=== PATIENT | female | born 1960 | race Caucasian/White ===

== ENCOUNTER 2019-08-22 08:27 | Inpatient (IN) | payer MEDICARE, OTHER ==
[2019-08-22] MEDS ORDERED: NITROGLYCERIN 0.4MG SL TABLET #25 BTL SL PRN ×2 (08:51→18:40)
[2019-08-22] MEDS ORDERED: ASPIRIN 81 MG CHEWABLE TABLET PO ONE (08:51)
[2019-08-22 09:03] LABS: ABSOLUTE NEUTROPHIL COUNT 3.32; BASO % 0.6 % (0-6); EOS % 2.7 % (0-6); GRAN % 52.9 % (47-80); HEMOGLOBIN 14.2 gm/dl (11.6-16.0); LYMPH % 30.8 % (16-45); MEAN CELL VOLUME 93.6 fl (81-97); MEAN CORPUSCULAR HEMOGLOBIN 30.2 pg (27-33); MEAN CORPUSCULAR HGB CONC 32.3 g/dl (32-36); MEAN PLATELET VOLUME 8.7 fl (7.4-10.4); PLATELET COUNT 359 K/uL (130-400); RED CELL DISTRIBUTION WIDTH 13.1 % (11.5-14.5); WHITE BLOOD COUNT W/O DIFF 6.3 K/uL (4.2-12.2)
[2019-08-22 09:13] LABS: BLOOD UREA NITROGEN 25 mg/dL (6-20); CREATININE 1.1 mg/dL (0.5-0.9); EST GLOMERULAR FILTRATION RATE 54 mL/min
[2019-08-22 09:14] LABS: TOTAL PROTEIN 7.5 g/dL (6.6-8.7)
[2019-08-22 09:16] LABS: GLUCOSE,RANDOM 97 mg/dL (74-109)
[2019-08-22 09:18] LABS: ALT/SGPT 24 U/L (<33)
[2019-08-22 09:19] LABS: ALB/GLOB RATIO 1.6 (1.1-1.8); ALBUMIN 4.6 g/dL (4.0-5.0); ALKALINE PHOSPHATASE 104 U/L (35-104); AST/SGOT 20 U/L (10.0-35.0); CREATINE PHOSPHOKINASE 192 U/L (26-192)
[2019-08-22 09:21] LABS: CKMB 4.7 ng/mL (<3.77)
[2019-08-22 09:22] LABS: NTpro B-NATRIURETIC PEPTIDE 26.01 pg/mL (<125)
--- NOTE | 2019-08-22 09:56 | Emergency Department Record ---
History of Present Illness - General Chief Complaint: Chest Pain Stated Complaint: CHEST DISCOMFORT/FLUTTERS Time Seen by Provider: 08/22/19 08:43 Source: Patient Mode of Arrival: Ambulatory Limitations: No limitations - History of Present Illness Initial Comments: pt has had intermittent cp for 2 wks that has been constant for 2 days. it is 7/10. she has no nausea, no sob. the pain is substernal and pressure like. 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 she has a fam hx in her mother of mi Complaint: Chest pain Onset/Timin -: Week(s) Pain Location: Substernal Pain Radiation: None Severity: Moderate Severity scale (1-10): 7 Quality: Heaviness, Other Consistency: Constant Improves With: Nothing Worsens With: Nothing Other Symptoms: Palpitations Treatments Prior to Arrival: None - Related Data Allergies Allergy/AdvReac Type Severity Reaction Status Date / Time codeine Allergy ITCHING Verified 08/22/19 08:36 venom-honey bee Allergy SWELLING Verified 08/22/19 08:36 [bee venom (honey bee)] (GENERAL) Travel Screening - Travel/Exposure Within Last 30 Days Have you traveled within the last 30 days?: No Review of Systems Reviewed: No additional complaints except as noted below Constitutional: Reports: As per HPI. Denies: Chills, Fever, Malaise, Night sweats, Weakness, Weight change Eyes: Reports: As per HPI. Denies: Eye discharge, Eye pain, Photophobia, Vision change ENT: Reports: As per HPI. Denies: Congestion, Dental pain, Ear pain, Epistaxis, Hearing loss, Throat pain Respiratory: Reports: As per HPI. Denies: Cough, Dyspnea, Hemoptysis, Stridor, Wheezes Cardiovascular: Reports: As per HPI, Chest pain, Palpitations. Denies: Arrhythmia, Dyspnea on exertion, Edema, Murmurs, Orthopnea, Paroxysmal nocturnal dyspnea, Rheumatic Fever, Syncope Endocrine: Reports: As per HPI. Denies: Fatigue, Heat or cold intolerance, Polydipsia, Polyuria Gastrointestinal: Reports: As per HPI. Denies: Abdominal pain, Constipation, Diarrhea, Hematemesis, Hematochezia, Melena, Nausea, Vomiting Genitourinary: Reports: As per HPI. Denies: Abnormal menses, Discharge, Dyspareunia, Dysuria, Frequency, Hematuria, Incontinence, Retention, Urgency Musculoskeletal: Reports: As per HPI. Denies: Arthralgia, Back pain, Gout, Joint swelling, Myalgia, Neck pain Skin: Reports: As per HPI. Denies: Bruising, Change in color, Change in hair/nails, Lesions, Pruritus, Rash Neurological: Reports: As per HPI. Denies: Abnormal gait, Confusion, Headache, Numbness, Paresthesias, Seizure, Tingling, Tremors, Vertigo, Weakness Psychiatric: Reports: As per HPI. Denies: Anxiety, Auditory hallucinations, Depression, Homicidal thoughts, Suicidal thoughts, Visual hallucinations Hematological/Lymphatic: Reports: As per HPI. Denies: Anemia, Blood Clots, Easy bleeding, Easy bruising, Swollen glands Past Medical History - SOCIAL HISTORY Smoking Status: Former smoker Alcohol Use: Occasional Drug Use: None - RESPIRATORY Hx Respiratory Disorders: No - CARDIOVASCULAR Hx Cardio Disorders: Yes Hx Cardiac Cath: Yes Hx Heart Attack: Yes (2010) Hx Hypertension: Yes Comment:: cardiomyopathy - NEURO Hx Neuro Disorders: No - GI Hx GI Disorders: Yes Comment:: colitis - Hx Genitourinary Disorders: No - ENDOCRINE Hx Endocrine Disorders: Yes Hx Thyroid Disease: Yes - MUSCULOSKELETAL Hx Musculoskeletal Disorders: Yes Comment:: neck injury - PSYCH Hx Psych Problems: Yes Hx Anxiety: Yes Hx Depression: Yes - HEMATOLOGY/ONCOLOGY Hx Hematology/Oncology Disorders: No Family Medical History Any Significant Family History?: Yes Hx Cancer: Father Hx Heart Disease: Mother Physical Exam - General General Appearance: Alert, Oriented x3, Cooperative, Mild distress - Head Head exam: Normal inspection - Eye Eye exam: Normal appearance, PERRL, EOMI Pupils: Normal accommodation - ENT ENT exam: Normal exam, Mucous membranes moist, Normal external ear exam, Normal orophraynx Ear exam: Normal external inspection. negative: External canal tenderness Nasal Exam: Normal inspection. negative: Discharge, Sinus tenderness Mouth exam: Normal external inspection, Tongue normal Teeth exam: Normal inspection. negative: Dental caries Throat exam: Normal inspection. negative: Tonsillar erythema, Tonsillar exudate - Neck Neck exam: Normal inspection, Full ROM. negative: Tenderness - Respiratory Respiratory exam: Normal lung sounds bilaterally. negative: Respiratory distress - Cardiovascular Cardiovascular Exam: Regular rate, Normal rhythm, Normal heart sounds - GI/Abdominal GI/Abdominal exam: Soft, Normal bowel sounds. negative: Tenderness - Rectal Rectal exam: Deferred - exam: Deferred - Extremities Extremities exam: Normal inspection, Full ROM, Normal capillary refill. negative: Tenderness - Back Back exam: Reports: Normal inspection, Full ROM. 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 Reevaluation #2: 08/22/19 11:45 d/w dr luna Medical Decision Making - Lab Data Result diagrams: 08/22/19 08:40 08/22/19 08:40 Lab Results 08/22/19 08/22/19 08/22/19 Range/Units 08:40 08:40 08:40 WBC 6.3 (4.2-12.2) K/uL RBC 4.70 (3.80-5.40) M/uL Hgb 14.2 (11.6-16.0) gm/dl Hct 44.0 (35.0-47.0) % MCV 93.6 (81-97) fl MCH 30.2 (27-33) pg MCHC 32.3 (32-36) g/dl RDW 13.1 (11.5-14.5) % Plt Count 359 (130-400) K/uL MPV 8.7 (7.4-10.4) fl Gran % 52.9 (47-80) % Lymphocytes % 30.8 (16-45) % Monocytes % 13.0 H (0-9) % Eosinophils % 2.7 (0-6) % Basophils % 0.6 (0-6) % Absolute Neutrophils 3.32 D-Dimer 0.39 (0-0.59) mg/L FEU Sodium 139 (136-145) mmol/L Potassium 3.6 (3.4-4.5) mmol/L Chloride 100 (98-107) mmol/L Carbon Dioxide 25.0 (22-29) mmol/L Anion Gap 14.0 (7-16) BUN 25 H (6-20) mg/dL Creatinine 1.1 H (0.5-0.9) mg/dL Estimated GFR 54 mL/min Random Glucose 97 (74-109) mg/dL Calcium 9.4 (8.6-10.0) mg/dL Total Bilirubin 0.50 (0.2-1.0) mg/dL AST 20 (10.0-35.0) U/L ALT 24 (<33) U/L Alkaline Phosphatase 104 (35-104) U/L Creatine Kinase 192 (26-192) U/L CK-MB (CK-2) 4.7 H (<3.77) ng/mL Troponin T < 0.010 (0-0.010) ng/mL NT-Pro-B Natriuret Pep 26.01 (<125) pg/mL Total Protein 7.5 (6.6-8.7) g/dL Albumin 4.6 (4.0-5.0) g/dL Globulin 2.9 (1.4-4.8) gm/dL Albumin/Globulin Ratio 1.6 (1.1-1.8) Disposition Disposition: Admit Clinical Impression: Chest pain Qualifiers: Chest pain type: unspecified Qualified Code(s): R07.9 - Chest pain, unspecified Disposition: Still a Patient at [facility] Decision to Admit: Admit from ER Decision to Admit Date: 08/22/19 Decision to Admit Time: 10:57 Forms: Patient Portal Access Quality - Quality Measures Quality Measures: N/A - Blood Pressure Screening Does Patient Have Any of the Following: Active Dx of HTN Blood Pressure Classification: Hypertensive Reading Systolic Measurement: 133 Diastolic Measurement: 90 Screening for High Blood Pressure: Patient Exclusion, Hx of HTN [G9744]
--- NOTE | 2019-08-22 10:15 | RADIOLOGY REPORT ---
EXAMINATION: Two View Chest Radiographs EXAM DATE: 08/22/2019 10:05 AM TECHNIQUE: Frontal and lateral views INDICATION: cp COMPARISON: None ENCOUNTER: Not applicable FINDINGS: Cardiomediastinal structures unremarkable. Bibasilar infiltrates or atelectasis. No pulmonary consoli dation. No pneumothorax or pleural effusion. Thoracic epidural wires. Cervical fusion. IMPRESSION: Bibasilar infiltrates or atelectasis Dictated by: Juancarlos Kunz MD on 08/22/2019 10:11 AM. .
--- NOTE | 2019-08-22 12:15 | History & Physical ---
History of Present Illness - Date of Service Date of Service for History & Physical: 08/22/19 - History of Present Illness History of Present Illness: Patient presents to ED today for complaint of intermittent substernal chest pain and pressure for the past 2 weeks which has been becoming more persistant for the past 2 days. Pain upon arrival 01/30. She does have hx of [place] 2010 with heart cath at that time which showed normal coronary arteries and was diagnosed with Takutsubo cardiomyopathy. She does have a family hx of mother who also had an [place]. Did socially smoke for 8 years, quit in 2014. Otherwise does not currently smoke cigarettes, marijuana, or vape. No travel out of the country in the last 30 days or contact with anyone traveling from [place]. Does report recent illness with flu-like symptoms a couple weeks ago and has had a lingering cough, fatigue, weakness. Denies fever, chills, diarrhea, nausea. She was given nitro in the ED and did have improvement in chest pain but did drop SBP to 90. She has followed with Dr Martin at [facility], last seen 2 years ago but wishes to change cardiology services to [facility]. Dr Cooley was consulted in the ED. Admitted for cardiology consult, echocardiogram, and stress test if warranted Significant findings in ED - EKG no acute process, NSR - CXR bilateral infiltrates - CBC normal - BUN/Cr 25, 1.1 - Troponin <0.010 - CkMB 4.7 - D-dimer normal - Triglycerides 236 - LDL 101 - HDL 39 PCP: Dr. Soriano Cardiology- [facility] Dr Tee PAST MEDICAL/SURGICAL HISTORY Past Surgical History neck-repair of fracture with plate; R arm repair of fracture with plate;spinal cord stimulator ( 2019) PMH - Respiratory Hx Respiratory Disorders No PMH - Cardiovascular Hx Cardiovascular Disorders Yes Hx Cardiac Catheterization Yes Hx Heart Attack Yes: 2010 Hx Hypertension Yes Comment: cardiomyopathy PMH - Neuro Hx Neurological Disorders No PMH - GI Hx Gastrointestinal Disorders Yes Comment: colitis PMH - Hx Genitourinary Disorders No Patient No PMH - Endocrine Hx Endocrine Disorders Yes Hx Thyroid Disease Yes PMH - Musculoskeletal Hx Musculoskeletal Disorders Yes Comment: neck injury PMH - Psych Hx Psychiatric Problems Yes Hx Anxiety Yes Hx Depression Yes PMH - Hematology/Oncology Hx Hematology/Oncology No Disorders Laboratory Results WBC 6.3 K/uL (4.2-12.2) 08/22/19 08:40 RBC 4.70 M/uL (3.80-5.40) 08/22/19 08:40 Hgb 14.2 gm/dl (11.6-16.0) 08/22/19 08:40 Hct 44.0 % (35.0-47.0) 08/22/19 08:40 MCV 93.6 fl (81-97) 08/22/19 08:40 MCH 30.2 pg (27-33) 08/22/19 08:40 MCHC 32.3 g/dl (32-36) 08/22/19 08:40 RDW 13.1 % (11.5-14.5) 08/22/19 08:40 Plt Count 359 K/uL (130-400) 08/22/19 08:40 MPV 8.7 fl (7.4-10.4) 08/22/19 08:40 Gran % 52.9 % (47-80) 08/22/19 08:40 Lymphocytes % 30.8 % (16-45) 08/22/19 08:40 Monocytes % 13.0 % (0-9) H 08/22/19 08:40 Eosinophils % 2.7 % (0-6) 08/22/19 08:40 Basophils % 0.6 % (0-6) 08/22/19 08:40 Absolute Neutrophils 3.32 08/22/19 08:40 D-Dimer 0.39 mg/L FEU (0-0.59) 08/22/19 08:40 Sodium 139 mmol/L (136-145) 08/22/19 08:40 Potassium 3.6 mmol/L (3.4-4.5) 08/22/19 08:40 Chloride 100 mmol/L (98-107) 08/22/19 08:40 Carbon Dioxide 25.0 mmol/L (22-29) 08/22/19 08:40 Anion Gap 14.0 (7-16) 08/22/19 08:40 BUN 25 mg/dL (6-20) H 08/22/19 08:40 Creatinine 1.1 mg/dL (0.5-0.9) H 08/22/19 08:40 Estimated GFR 54 mL/min 08/22/19 08:40 Random Glucose 97 mg/dL (74-109) 08/22/19 08:40 Calcium 9.4 mg/dL (8.6-10.0) 08/22/19 08:40 Total Bilirubin 0.50 mg/dL (0.2-1.0) 08/22/19 08:40 AST 20 U/L (10.0-35.0) 08/22/19 08:40 ALT 24 U/L (<33) 08/22/19 08:40 Alkaline Phosphatase 104 U/L (35-104) 08/22/19 08:40 Creatine Kinase 192 U/L (26-192) 08/22/19 08:40 CK-MB (CK-2) Cancelled 08/23/19 14:30 Troponin T Cancelled 08/23/19 14:30 NT-Pro-B Natriuret Pep 26.01 pg/mL (<125) 08/22/19 08:40 Total Protein 7.5 g/dL (6.6-8.7) 08/22/19 08:40 Albumin 4.6 g/dL (4.0-5.0) 08/22/19 08:40 Globulin 2.9 gm/dL (1.4-4.8) 08/22/19 08:40 Albumin/Globulin Ratio 1.6 (1.1-1.8) 08/22/19 08:40 Triglycerides 236 mg/dL (<150) H 08/22/19 08:40 Cholesterol 159 mg/dL (<200) 08/22/19 08:40 LDL Cholesterol Measurd 101.0 mg/dL (0-100) H 08/22/19 08:40 VLDL Cholesterol 47 mg/dL (10.00-40.00) 08/22/19 08:40 HDL Cholesterol 39 mg/dL (40-60) L 08/22/19 08:40 Vital Signs - Last 24 Hrs Temp Pulse Pulse Pulse Resp BP BP 08/22/19 12:26 66 18 103/67 08/22/19 12:23 97.8 F 71 16 106/70 08/22/19 10:47 97.8 F 72 14 107/77 08/22/19 09:31 68 100/64 08/22/19 09:09 76 18 98/70 08/22/19 09:04 71 18 125/86 08/22/19 08:30 97.4 F L 82 20 133/90 Pulse Ox 08/22/19 12:26 99 08/22/19 12:23 92 L 08/22/19 10:47 98 08/22/19 09:31 95 08/22/19 09:09 96 08/22/19 09:04 98 08/22/19 08:30 98 Travel Screening - Travel/Exposure Within Last 30 Days Have you traveled within the last 30 days?: No Review of Systems Constitutional: Reports: As per HPI. Denies: Chills, Fever, Malaise, Night sweats, Weakness, Weight change Eyes: Reports: As per HPI. Denies: Eye discharge, Eye pain, Photophobia, Vision change ENT: Reports: As per HPI. Denies: Congestion, Dental pain, Ear pain, Epistaxis, Hearing loss, Throat pain Respiratory: Reports: As per HPI. Denies: Cough, Dyspnea, Hemoptysis, Stridor, Wheezes Cardiovascular: Reports: As per HPI, Chest pain, Palpitations. Denies: Arrhythmia, Dyspnea on exertion, Edema, Murmurs, Orthopnea, Paroxysmal nocturnal dyspnea, Rheumatic Fever, Syncope Endocrine: Reports: As per HPI. Denies: Fatigue, Heat or cold intolerance, Polydipsia, Polyuria Gastrointestinal: Reports: As per HPI. Denies: Abdominal pain, Constipation, Diarrhea, Hematemesis, Hematochezia, Melena, Nausea, Vomiting Genitourinary: Reports: As per HPI. Denies: Abnormal menses, Discharge, Dyspareunia, Dysuria, Frequency, Hematuria, Incontinence, Retention, Urgency Musculoskeletal: Reports: As per HPI. Denies: Arthralgia, Back pain, Gout, Joint swelling, Myalgia, Neck pain Skin: Reports: As per HPI. Denies: Bruising, Change in color, Change in hair/nails, Lesions, Pruritus, Rash Neurological: Reports: As per HPI. Denies: Abnormal gait, Confusion, Headache, Numbness, Paresthesias, Seizure, Tingling, Tremors, Vertigo, Weakness Psychiatric: Reports: As per HPI. Denies: Anxiety, Auditory hallucinations, Depression, Homicidal thoughts, Suicidal thoughts, Visual hallucinations Hematological/Lymphatic: Reports: As per HPI. Denies: Anemia, Blood Clots, Easy bleeding, Easy bruising, Swollen glands Past Medical History - SOCIAL HISTORY Smoking Status: Former smoker Alcohol Use: Occasional Drug Use: None - RESPIRATORY Hx Respiratory Disorders: No - CARDIOVASCULAR Hx Cardio Disorders: Yes Hx Cardiac Cath: Yes Hx Heart Attack: Yes (2010) Hx Hypertension: Yes Comment:: cardiomyopathy - NEURO Hx Neuro Disorders: No - GI Hx GI Disorders: Yes Comment:: colitis - Hx Genitourinary Disorders: No - ENDOCRINE Hx Endocrine Disorders: Yes Hx Thyroid Disease: Yes - MUSCULOSKELETAL Hx Musculoskeletal Disorders: Yes Comment:: neck injury - PSYCH Hx Psych Problems: Yes Hx Anxiety: Yes Hx Depression: Yes - HEMATOLOGY/ONCOLOGY Hx Hematology/Oncology Disorders: No Family Medical History Any Significant Family History?: Yes Hx Cancer: Father Hx Heart Disease: Mother H&P Meds/Allergies - Allergies Allergies: Allergies Allergy/AdvReac Type Severity Reaction Status Date / Time codeine Allergy ITCHING Verified 08/22/19 08:36 venom-honey bee Allergy SWELLING Verified 08/22/19 08:36 [bee venom (honey bee)] (GENERAL) - Active Medications Active Medications: Current Medications Nitroglycerin (Nitrostat 0.4mg) 0.4 mg SL Q5MIN PRN PRN Reason: CHEST PAIN Last Admin: 08/22/19 09:04 Dose: 0.4 mg Documented by: Physical Exam - Vital Signs Vital Signs: Vital Signs - Last 24 Hrs Temp Pulse Pulse Resp BP BP Pulse Ox 08/22/19 10:47 97.8 F 72 14 107/77 98 08/22/19 09:31 68 100/64 95 08/22/19 09:09 76 18 98/70 96 08/22/19 09:04 71 18 125/86 98 08/22/19 08:30 97.4 F L 82 20 133/90 98 - General General Appearance: Alert, Oriented x3, Cooperative Limitations: No limitations - Head Head exam: Normal inspection - Eye Eye exam: Normal appearance, PERRL, EOMI Pupils: Normal accommodation - ENT ENT exam: Normal exam, Mucous membranes moist, Normal external ear exam, Normal orophraynx Ear exam: Normal external inspection. negative: External canal tenderness Nasal Exam: Normal inspection. negative: Discharge, Sinus tenderness Mouth exam: Normal external inspection, Tongue normal Teeth exam: Normal inspection. negative: Dental caries Throat exam: Normal inspection. negative: Tonsillar erythema, Tonsillar exudate - Neck Neck exam: Normal inspection, Full ROM, Other (no carotid bruit). negative: Tenderness - Respiratory Respiratory exam: Normal lung sounds bilaterally. negative: Respiratory distress - Cardiovascular Cardiovascular Exam: Regular rate, Normal rhythm, Normal heart sounds Peripheral Pulses: 3+: Radial (R), Radial (L) - GI/Abdominal GI/Abdominal exam: Soft, Normal bowel sounds. negative: Tenderness - Rectal Rectal exam: Deferred - exam: Deferred - Extremities Extremities exam: Normal inspection, Full ROM, Normal capillary refill. negative: Tenderness - Back Back exam: Reports: Normal inspection, Full ROM. Denies: Muscle spasm, Rash noted, Tenderness - Neurological Neurological exam: Alert, CN II-XII intact, Normal gait, Oriented X3 - Psychiatric Psychiatric exam: Normal affect, Normal mood - Skin Skin exam: Dry, Intact, Normal color, Warm Results - Labs Result Diagrams: 08/22/19 08:40 08/22/19 08:40 Labs Last 24 Hours: Laboratory Results - last 24 hr 08/22/19 08/22/19 08/22/19 08:40 08:40 08:40 WBC 6.3 RBC 4.70 Hgb 14.2 Hct 44.0 MCV 93.6 MCH 30.2 MCHC 32.3 RDW 13.1 Plt Count 359 MPV 8.7 Gran % 52.9 Lymphocytes % 30.8 Monocytes % 13.0 H Eosinophils % 2.7 Basophils % 0.6 Absolute Neutrophils 3.32 D-Dimer 0.39 Sodium 139 Potassium 3.6 Chloride 100 Carbon Dioxide 25.0 Anion Gap 14.0 BUN 25 H Creatinine 1.1 H Estimated GFR 54 Random Glucose 97 Calcium 9.4 Total Bilirubin 0.50 AST 20 ALT 24 Alkaline Phosphatase 104 Creatine Kinase 192 CK-MB (CK-2) 4.7 H Troponin T < 0.010 NT-Pro-B Natriuret Pep 26.01 Total Protein 7.5 Albumin 4.6 Globulin 2.9 Albumin/Globulin Ratio 1.6 - Imaging and Cardiology Chest x-ray Status: Report reviewed VTE H&P Assessment - Risk for VTE Risk for VTE: Yes Risk Level: Moderate Risk Assessment Date: 08/22/19 Risk Assessment Time: 15:45 VTE Orders Placed or Will Be Placed: Yes Plan - Detailed Diagnosis and Plan (1) Bilateral pneumonia Current Visit: Yes Status: Acute Qualifiers: Lung location: lower lobe of lung Base Code: J18.9 - PNEUMONIA, UNSPECIFIED ORGANISM Comment: 08/22/2019 - CXR in ED bibasilar infiltrate - Rocephin 1gm BID - Procalcitonin from am labs then repeat in am - CBC am - Noted BUN/Cr 25/1.1, no hx kidney disease, reports HTN controlled, does not drink a lot of water. Could be dehydration. IV NS @ 100/hr, recheck in am. Monitor BP (2) Chest pain Current Visit: Yes Status: Acute Qualifiers: Chest pain type: unspecified Qualified Code(s): R07.9 - Chest pain, unspecified Base Code: R07.9 - CHEST PAIN, UNSPECIFIED Comment: 08/22/19 - EKG in ED NSR - Telemetry - Troponin 1- <0.010 , MB 4.7 - Nitro PRN - ASA 325mg QD - Cardiology consult with [facility] cardiology (new established from [facility] per patient request. WIll trend troponins, there was mild elevation in MB. If any elevation in Troponin will transfer to [facility] for cardiac cath - Echocardiogram today, if EF no preserved will transfer to [facility]. She does have hx NSTEMI 2010 - (3) HTN (hypertension) Current Visit: Yes Status: Acute Qualifiers: Hypertension type: essential hypertension Qualified Code(s): I10 - Essential (primary) hypertension Base Code: I10 - ESSENTIAL (PRIMARY) HYPERTENSION Comment: 08/22/19 - Controlled in ED - Lisinopril 30mg QD, HCTZ 25mg QD, Lopressor 50mg BID (4) DVT prophylaxis Current Visit: Yes Status: Acute Base Code: Z29.9 - ENCOUNTER FOR PRO PHYLACTIC MEASURES, UNSPECIFIED Comment: 08/22/19 - ASA QD - Lovenox 40mg QD (5) Full code status Current Visit: Yes Status: Acute Base Code: Z78.9 - OTHER SPECIFIED HEALTH STATUS
[2019-08-22] MEDS ORDERED: TEMAZEPAM 15 MG CAPSULE PO PRN (13:27)
[2019-08-22] MEDS ORDERED: ACETAMINOPHEN 500 MG TABLET PO PRN (13:27)
[2019-08-22] MEDS ORDERED: LEVOTHYROXINE SOD 112 MCG TAB PO SCH (13:27)
[2019-08-22] MEDS ORDERED: CEFTRIAXONE SODIUM 1 GM in 0.9 % SODIUM CHLORIDE 100ML 100 ML IVPB SCH (13:30)
[2019-08-22] MEDS ORDERED: LISINOPRIL 10 MG TABLET PO SCH ×2 (14:00→15:50)
[2019-08-22] MEDS: CEFTRIAXONE 1GM/50ML BAG 1 GM/50 ML BAG IVPB SCH (14:21)
--- NOTE | 2019-08-22 15:07 | Consult ---
Consult Order Detail - Reason for Consult Consult Date: 08/22/19 (CARDIOLOGY ) - Chief Complaint Chief Complaint: CHEST PAIN HPI Consult - History of Present Illness Admitting Diagnosis: chest pain History of Present Illness: Ms. Ball is a 58 yo female with PMH of hypertension, hyperlipidemia, and former tobacco abuse. She also has a family history of CAD. In 2010 she suffered an NSTEMI and was diagnosed with Takotsubo cardiomyopathy as cardiac catheterization at that time did not demonstrate any obstructive disease. She previously followed with [facility] but has not seen a public accountant in some time. She presented to [facility] with complaint of chest pain that has been intermittent for th e last two weeks. Recently it has become more persistent. Occurs both with rest and with exertion. No specific aggravating factors. No alleviating factors. Denies shortness of breath, PND, orthopnea, and peripheral edema. Denies lightheadedness, dizziness and syncope. Has occasional palpitations at night that she believes are related to her hypothyroidism. Her vital signs are stable. No acute EKG changes. Initial troponin WNL. CK-MB elevated slightly at 4.7. Echocardioogram pending. Currently chest pain free and resting comfortably in bed. ROS Constitutional: Reports: As per HPI. Denies: Chills, Fever, Malaise, Night sweats, Weakness, Weight change Eyes: Reports: As per HPI. Denies: Eye discharge, Eye pain, Photophobia, Vision change - ENT ENT: Reports: As per HPI. Denies: Congestion, Dental pain, Ear pain, Epistaxis, Hearing loss, Throat pain - Respiratory Respiratory: Reports: As per HPI. Denies: Cough, Dyspnea, Hemoptysis, Stridor, Wheezes - Cardiovascular Cardiovascular: Reports: As per HPI, Chest pain, Palpitations. Denies: Arrhythmia, Dyspnea on exertion, Edema, Murmurs, Orthopnea, Paroxysmal nocturnal dyspnea, Rheumatic Fever, Syncope - Endocrine Endocrine: Reports: As per HPI. Denies: Fatigue, Heat or cold intolerance, Polydipsia, Polyuria - Gastrointestinal Gastrointestinal: Reports: As per HPI. Denies: Abdominal pain, Constipation, Diarrhea, Hematemesis, Hematochezia, Melena, Nausea, Vomiting - Genitourinary Genitourinary: Reports: As per HPI. Denies: Abnormal menses, Discharge, Dyspareunia, Dysuria, Frequency, Hematuria, Incontinence, Retention, Urgency - Musculoskeletal Musculoskeletal: Reports: As per HPI. Denies: Arthralgia, Back pain, Gout, Joint swelling, Myalgia, Neck pain - Skin Skin: Reports: As per HPI. Denies: Bruising, Change in color, Change in hair/nails, Lesions, Pruritus, Rash - Neurological Neurological: Reports: As per HPI. Denies: Abnormal gait, Confusion, Headache, Numbness, Paresthesias, Seizure, Tingling, Tremors, Vertigo, Weakness - Psychiatric Psychiatric: Reports: As per HPI. Denies: Anxiety, Auditory hallucinations, Depression, Homicidal thoughts, Suicidal thoughts, Visual hallucinations - Hematological/Lymphatic Hematological/Lymphatic: Reports: As per HPI. Denies: Anemia, Blood Clots, Easy bleeding, Easy bruising, Swollen glands Past Medical History - SOCIAL HISTORY Smoking Status: Former smoker Alcohol Use: Occasional Drug Use: None - RESPIRATORY Hx Respiratory Disorders: No - CARDIOVASCULAR Hx Cardio Disorders: Yes Hx Cardiac Cath: Yes (2010, Takotsubo CM ) Hx Heart Attack: Yes (2010) Hx Hypertension: Yes Comment:: cardiomyopathy - NEURO Hx Neuro Disorders: No - GI Hx GI Disorders: Yes Comment:: colitis - Hx Genitourinary Disorders: No - ENDOCRINE Hx Endocrine Disorders: Yes Hx Thyroid Disease: Yes (hypothyroidism ) - MUSCULOSKELETAL Hx Musculoskeletal Disorders: Yes Comment:: neck injury - PSYCH Hx Psych Problems: Yes Hx Anxiety: Yes Hx Depression: Yes - HEMATOLOGY/ONCOLOGY Hx Hematology/Oncology Disorders: No Family Medical History Any Significant Family History?: Yes Hx Cancer: Father Hx Heart Disease: Mother H&P Meds - Home Medications and Allergies Allergies Allergy/AdvReac Type Severity Reaction Status Date / Time codeine Allergy ITCHING Verified 08/22/19 08:36 venom-honey bee Allergy SWELLING Verified 08/22/19 08:36 [bee venom (honey bee)] (GENERAL) Physical Exam - Vital Signs Vital Signs: Vital Signs - Last 24 Hrs Temp Pulse Pulse Pulse Resp BP BP 08/22/19 14:29 71 18 08/22/19 14:28 71 18 08/22/19 12:26 66 18 103/67 08/22/19 12:23 97.8 F 71 16 106/70 08/22/19 10:47 97.8 F 72 14 107/77 08/22/19 09:31 68 100/64 08/22/19 09:09 76 18 98/70 08/22/19 09:04 71 18 125/86 08/22/19 08:30 97.4 F L 82 20 133/90 Pulse Ox 08/22/19 14:29 08/22/19 14:28 08/22/19 12:26 99 08/22/19 12:23 92 L 08/22/19 10:47 98 08/22/19 09:31 95 08/22/19 09:09 96 08/22/19 09:04 98 08/22/19 08:30 98 - General General Appearance: Alert, Oriented x3, Cooperative, Mild distress Limitations: No limitations - Head Head exam: Normal inspection - Eye Eye exam: Normal appearance, PERRL, EOMI Pupils: Normal accommodation - ENT ENT exam: Normal exam, Mucous membranes moist, Normal external ear exam, Normal orophraynx Ear exam: Normal external inspection. negative: External canal tenderness Nasal Exam: Normal inspection. negative: Discharge, Sinus tenderness Mouth exam: Normal external inspection, Tongue normal Teeth exam: Normal inspection. negative: Dental caries Throat exam: Normal inspection. negative: Tonsillar erythema, Tonsillar exudate - Neck Neck exam: Normal inspection, Full ROM. negative: Tenderness - Respiratory Respiratory exam: Normal lung sounds bilaterally. negative: Respiratory distress - Cardiovascular Cardiovascular Exam: Regular rate, Normal rhythm, Normal heart sounds - GI/Abdominal GI/Abdominal exam: Soft, Normal bowel sounds. negative: Tenderness - Rectal Rectal exam: Deferred - exam: Deferred - Extremities Extremities exam: Normal inspection, Full ROM, Normal capillary refill. neg ative: Tenderness - Back Back exam: Reports: Normal inspection, Full ROM. Denies: Muscle spasm, Rash noted, Tenderness - Neurological Neurological exam: Alert, CN II-XII intact, Normal gait, Oriented X3 - Psychiatric Psychiatric exam: Normal affect, Normal mood - Skin Skin exam: Dry, Intact, Normal color, Warm Results - Labs Result Diagrams: 08/22/19 08:40 08/22/19 08:40 Labs Last 24 Hours: Laboratory Results - last 24 hr 08/22/19 08/22/19 08/22/19 08:40 08:40 08:40 WBC 6.3 RBC 4.70 Hgb 14.2 Hct 44.0 MCV 93.6 MCH 30.2 MCHC 32.3 RDW 13.1 Plt Count 359 MPV 8.7 Gran % 52.9 Lymphocytes % 30.8 Monocytes % 13.0 H Eosinophils % 2.7 Basophils % 0.6 Absolute Neutrophils 3.32 D-Dimer 0.39 Sodium 139 Potassium 3.6 Chloride 100 Carbon Dioxide 25.0 Anion Gap 14.0 BUN 25 H Creatinine 1.1 H Estimated GFR 54 Random Glucose 97 Calcium 9.4 Total Bilirubin 0.50 AST 20 ALT 24 Alkaline Phosphatase 104 Creatine Kinase 192 CK-MB (CK-2) 4.7 H Troponin T < 0.010 NT-Pro-B Natriuret Pep 26.01 Total Protein 7.5 Albumin 4.6 Globulin 2.9 Albumin/Globulin Ratio 1.6 Triglycerides Cholesterol LDL Cholesterol Measurd VLDL Cholesterol HDL Cholesterol 08/22/19 08/22/19 08/22/19 08:40 22:30 22:30 WBC RBC Hgb Hct MCV MCH MCHC RDW Plt Count MPV Gran % Lymphocytes % Monocytes % Eosinophils % Basophils % Absolute Neutrophils D-Dimer Sodium Potassium Chloride Carbon Dioxide Anion Gap BUN Creatinine Estimated GFR Random Glucose Calcium Total Bilirubin AST ALT Alkaline Phosphatase Creatine Kinase CK-MB (CK-2) Cancelled Troponin T Cancelled NT-Pro-B Natriuret Pep Total Protein Albumin Globulin Albumin/Globulin Ratio Triglycerides 236 H Cholesterol 159 LDL Cholesterol Measurd 101.0 H VLDL Cholesterol 47 HDL Cholesterol 39 L 08/23/19 08/23/19 08/23/19 06:30 06:30 14:30 WBC RBC Hgb Hct MCV MCH MCHC RDW Plt Count MPV Gran % Lymphocytes % Monocytes % Eosinophils % Basophils % Absolute Neutrophils D-Dimer Sodium Potassium Chloride Carbon Dioxide Anion Gap BUN Creatinine Estimated GFR Random Glucose Calcium Total Bilirubin AST ALT Alkaline Phosphatase Creatine Kinase CK-MB (CK-2) Cancelled Troponin T Cancelled Cancelled NT-Pro-B Natriuret Pep Total Protein Albumin Globulin Albumin/Globulin Ratio Triglycerides Cholesterol LDL Cholesterol Measurd VLDL Cholesterol HDL Cholesterol 08/23/19 14:30 WBC RBC Hgb Hct MCV MCH MCHC RDW Plt Count MPV Gran % Lymphocytes % Monocytes % Eosinophils % Basophils % Absolute Neutrophils D-Dimer Sodium Potassium Chloride Carbon Dioxide Anion Gap BUN Creatinine Estimated GFR Random Glucose Calcium Total Bilirubin AST ALT Alkaline Phosphatase Creatine Kinase CK-MB (CK-2) Cancelled Troponin T NT-Pro-B Natriuret Pep Total Protein Albumin Globulin Albumin/Globulin Ratio Triglycerides Cholesterol LDL Cholesterol Measurd VLDL Cholesterol HDL Cholesterol Assessment and Plan - Disposition Disposition: 1. Chest Pain 2. Hx Takotsubo Cardiomyopathy 3. Hypertension 4. Former Tobacco Abuse 5. Hyperlipidemia 6. Family History CAD Ms. Ball is a 58 yo female with PMH of hypertension, hyperlipidemia, and former tobacco abuse. She also has a family history of CAD. In 2010 she suffered an NSTEMI and was diagnosed with Takotsubo cardiomyopathy as cardiac catheterization at that time did not demonstrate any obstructive disease. She previously followed with [facility] but has not seen a public accountant in some time. She presented to [facility] with complaint of chest pain that has been intermittent for the last two weeks. Recently it has become more persistent. Occurs both with rest and with exertion. No specific aggravating factors. No alleviating factors. Denies shortness of breath, PND, orthopnea, and peripheral edema. Denies lig htheadedness, dizziness and syncope. Has occasional palpitations at night that she believes are related to her hypothyroidism. Her vital signs are stable. No acute EKG changes. Initial troponin WNL. CK-MB elevated slightly at 4.7. Echocardioogram pending. Currently chest pain free and resting comfortably in bed. Continue to trend troponin. If troponin trends upwards or echocardiogram is abnormal will plan to transfer to [facility] for cardiac catheteirzation. If troponin remains normal and EF is preserved with no WMA she may follow up in our office for a stress test.
[2019-08-22] MEDS: 0.9 % SODIUM CHLORIDE 1000ML 1,000 ML IV PRN (15:49)
[2019-08-22] MEDS ORDERED: SUMATRIPTAN 50 MG PO PRN (16:00)
[2019-08-22] MEDS ORDERED: NITROGLYCERIN 0.4MG SL TABLET #25 BTL SL ONE (18:30)
[2019-08-22] MEDS ORDERED: ALPRAZOLAM 0.25 MG TABLET PO PRN (18:50)
[2019-08-22] MEDS ORDERED: AL HYDROX/MAG HYDROX 30ML UD PO PRN (18:52)
--- NOTE | 2019-08-22 20:42 | CT SCAN REPORT ---
EXAMINATION: CT Chest with Contrast EXAM DATE: 08/22/2019 8:34 PM TECHNIQUE: Spiral CT images were done from lung apices to the lung bases after the injection of intra venous contrast. Sagittal and coronal 2-D reformats were made from source images. IV Contrast: The type and amount of contrast are recorded in the medical record. INDICATION: pericardial effusion, chest pain 3 wks COMPARISON: None. FINDINGS: Mild scarring or atelectasis at the lung bases. The lung parenchyma is otherwise unremarkable. No ple ural effusion or pericardial effusion. A few small mediastinal lymph nodes are seen, with no patholog ically enlarged nodes. IMPRESSION: 1. Negative. Dictated by: Miah Ann MD on 08/22/2019 8:33 PM. .
[2019-08-22] MEDS ORDERED: PRAMIPEXOLE DI-HCL 0.25 MG TABLET PO SCH (22:00)
[2019-08-22] MEDS ORDERED: SIMVASTATIN 10MG TABLET PO SCH (22:00)
[2019-08-22] MEDS ORDERED: METOPROLOL TART 50 MG TABLET PO SCH (22:00)
[2019-08-23 01:10] LABS: CKMB 3.9 ng/mL (<3.77)
[2019-08-23] MEDS: CEFTRIAXONE 1GM/50ML BAG 1 GM/50 ML BAG IVPB SCH (02:02)
[2019-08-23] MEDS: 0.9 % SODIUM CHLORIDE 1000ML 1,000 ML IV PRN (02:02)
[2019-08-23 06:40] LABS: ABSOLUTE NEUTROPHIL COUNT 2.64; BASO % 0.6 % (0-6); EOS % 2.7 % (0-6); GRAN % 50.6 % (47-80); HEMATOCRIT 40.2 % (35.0-47.0); HEMOGLOBIN 12.5 gm/dl (11.6-16.0); LYMPH % 33.5 % (16-45); MEAN CELL VOLUME 96.2 fl (81-97); MEAN CORPUSCULAR HEMOGLOBIN 29.9 pg (27-33); MEAN CORPUSCULAR HGB CONC 31.1 g/dl (32-36); MEAN PLATELET VOLUME 8.5 fl (7.4-10.4); MONO % 12.6 % (0-9); PLATELET COUNT 328 K/uL (130-400); RED BLOOD COUNT 4.18 M/uL (3.80-5.40); RED CELL DISTRIBUTION WIDTH 13.1 % (11.5-14.5); WHITE BLOOD COUNT W/O DIFF 5.2 K/uL (4.2-12.2)
[2019-08-23] MEDS ORDERED: LEVOTHYROXINE SOD 112 MCG TAB PO SCH (07:00)
[2019-08-23] MEDS ORDERED: PANTOPRAZOLE SODIUM 40 MG TABLET PO SCH (07:00)
[2019-08-23 07:40] LABS: ALB/GLOB RATIO 1.8 (1.1-1.8); ALBUMIN 4.1 g/dL (4.0-5.0); ALKALINE PHOSPHATASE 81 U/L (35-104); ALT/SGPT 19 U/L (<33); AST/SGOT 16 U/L (10.0-35.0); BLOOD UREA NITROGEN 23 mg/dL (6-20); CREATININE 0.8 mg/dL (0.5-0.9); EST GLOMERULAR FILTRATION RATE > 60 mL/min; GLUCOSE,RANDOM 113 mg/dL (74-109); TOTAL PROTEIN 6.4 g/dL (6.6-8.7)
--- NOTE | 2019-08-23 09:17 | Discharge Summary ---
Providers Discharge Summary Date: 08/23/19 Date of admission: 08/22/19 15:36 Expected Date of Discharge: 08/23/19 Attending physician: RAKEL NICHOLS Primary care physician: ZIYAD SORIANO M.D. Consults: Consult Orders 08/22/19 13:27 Consult NOW Consulting Provider: Ke Tee Physician Instructions: Reason For Exam: cp Physical Exam - Vital Signs Vital Signs: Vital Signs - Last 24 Hrs Temp Pulse Pulse Pulse Resp BP BP 08/23/19 00:47 74 18 99/60 08/22/19 19:46 98.1 F 79 79 18 108/55 08/22/19 18:47 78 20 95/58 08/22/19 15:27 98.2 F 86 70 18 120/76 08/22/19 14:29 71 18 08/22/19 14:28 71 18 08/22/19 14:00 98.2 F 74 16 116/65 08/22/19 12:26 66 18 103/67 08/22/19 12:23 97.8 F 71 16 106/70 08/22/19 10:47 97.8 F 72 14 107/77 08/22/19 09:31 68 100/64 Pulse Ox 08/23/19 00:47 96 08/22/19 19:46 95 08/22/19 18:47 95 08/22/19 15:27 98 08/22/19 14:29 08/22/19 14:28 08/22/19 14:00 97 08/22/19 12:26 99 08/22/19 12:23 92 L 08/22/19 10:47 98 08/22/19 09:31 95 - General General Appearance: Alert, Oriented x3, Cooperative Limitations: No limitations - Head Head exam: Normal inspection - Eye Eye exam: Normal appearance, PERRL, EOMI Pupils: Normal accommodation - ENT ENT exam: Normal exam, Mucous membranes moist, Normal external ear exam, Normal orophraynx Ear exam: Normal external inspection. negative: External canal tenderness Nasal Exam: Normal inspection. negative: Discharge, Sinus tenderness Mouth exam: Normal external inspection, Tongue normal Teeth exam: Normal inspection. negative: Dental caries Throat exam: Normal inspection. negative: Tonsillar erythema, Tonsillar exudate - Neck Neck exam: Normal inspection, Full ROM, Other (no carotid bruit). negative: Tenderness - Respiratory Respiratory exam: Normal lung sounds bilaterally. negative: Respiratory distress - Cardiovascular Cardiovascular Exam: Regular rate, Normal rhythm, Normal heart sounds Peripheral Pulses: 3+: Radial (R), Radial (L) - GI/Abdominal GI/Abdominal exam: Soft, Normal bowel sounds. negative: Tenderness - Rectal Rectal exam: Deferred - exam: Deferred - Extremities Extremities exam: Normal inspection, Full ROM, Normal capillary refill. negative: Tenderness - Back Back exam: Reports: Normal inspection, Full ROM. Denies: Muscle spasm, Rash noted, Tenderness - Neurological Neurological exam: Alert, CN II-XII intact, Normal gait, Oriented X3 - Psychiatric Psychiatric exam: Normal affect, Normal mood - Skin Skin exam: Dry, Intact, Normal color, Warm Hospitalization - Hospitalization Admission Diagnosis: bilateral pneumonia - Problem List/Discharge Diagnosis (1) Bilateral pneumonia Current Visit: Yes Status: Acute Discharge Diagnosis: Lung location: lower lobe of lung Base Code: J18.9 - PNEUMONIA, UNSPECIFIED ORGANISM Comment: 08/22/2019 - CXR in ED bibasilar infiltrate - Rocephin 1gm BID, CT chest done over night due to pericardial effusion which did not show pneumonia, will DC antibiotics, no further need - Procalcitonin <.1 consecutively, remained afebrile, WBC normal - Noted BUN/Cr 25/1.1, no hx kidney disease, reports HTN controlled, does not drink a lot of water. Could be dehydration. IV NS @ 100/hr, recheck in am. Monitor BP (2) Chest pain Current Visit: Yes Status: Acute Discharge Diagnosis: Chest pain type: unspecified Qualified Code(s): R07.9 - Chest pain, unspecified Base Code: R07.9 - CHEST PAIN, UNSPECIFIED Comment: 08/23/19 - EKG in ED NSR - Telemetry- Did have 2 episode of chest pain and fluttering last night, pain resovled with nitro x 1 dose. Telemetry at that time did show PVC/PAC - Troponin x 3 all <0.010 , MB 4.7-->3.4 - Nitro PRN - ASA 325mg QD - Cardiology consult with [facility] cardiology (new established from [facility] per patient request. Plan to follow up as outpatient for stress test - Echocardiogram today- EF preserved, no WMA, small pericardial effusion without hemodynamic compromise She does have hx NSTEMI 2010 - Plan to discharg home with 48 hour holter monitor, Dr Tee consulted regarding discharge plan of care and is in agreemenet (3) HTN (hypertension) Current Visit: Yes Status: Acute Discharge Diagnosis: Hypertension type: essential hypertension Qualified Code(s): I10 - Essential (primary) hypertension Base Code: I10 - ESSENTIAL (PRIMARY) HYPERTENSION Comment: 08/23/19 - Controlled in ED - Lisinopril 30mg QD, HCTZ 25mg QD, Lopressor 50mg BID (4) DVT prophylaxis Current Visit: Yes Status: Acute Base Code: Z29.9 - ENCOUNTER FOR PROPHYLACTIC MEASURES, UNSPECIFIED Comment: 08/23/19 - ASA QD - Lovenox 40mg QD (5) Full code status Current Visit: Yes Status: Acute Base Code: Z78.9 - OTHER SPECIFIED HEALTH STATUS - Hospitalization Course Disposition: Home, Self-Care Hospital Course: Patient presents to ED today for complaint of intermittent substernal chest pain and pressure for the past 2 weeks which has been becoming more persistant for the past 2 days. Pain upon arrival 01/30. She does have hx of WA 2010 with heart cath at that time which showed normal coronary arteries and was diagnosed with Takutsubo cardiomyopathy. She does have a family hx of mother who also had an [place]. Did socially smoke for 8 years, quit in 2014. Otherwise does not currently smoke cigarettes, marijuana, or vape. No travel out of the country in the last 30 days or contact with anyone traveling from [place]. Does report recent illness with flu-like symptoms a couple weeks ago and has had a lingering cough, fatigue, weakness. Denies fever, chills, diarrhea, nausea. She was given nitro in the ED and did have improvement in chest pain but did drop SBP to 90. She has followed with Dr Martin at [facility], last seen 2 years ago but wishes to change cardiology services to [facility]. Dr Cooley was consulted in the ED. Admitted for cardiology consult, echocardiogram, and stress test if warranted Significant findings in ED - EKG no acute process, NSR - CXR bilateral infiltrates - CBC normal - BUN/Cr 25, 1.1 - Troponin <0.010 - CkMB 4.7 - D-dimer normal - Triglycerides 236 - LDL 101 - HDL 39 PCP: Dr. Soriano Cardiology- [facility] Dr Tee PAST MEDICAL/SURGICAL HISTORY Past Surgical History neck-repair of fracture with plate; R arm repair of fracture with plate;spinal cord stimulator ( 2019) PMH - Respiratory Hx Respiratory Disorders No PMH - Cardiovascular Hx Cardiovascular Disorders Yes Hx Cardiac Catheterization Yes Hx Heart Attack Yes: 2010 Hx Hypertension Yes Comment: cardiomyopathy PMH - Neuro Hx Neurological Disorders No PMH - GI Hx Gastrointestinal Disorders Yes Comment: colitis PMH - Hx Genitourinary Disorders No Patient No PMH - Endocrine Hx Endocrine Disorders Yes Hx Thyroid Disease Yes PMH - Musculoskeletal Hx Musculoskeletal Disorders Yes Comment: neck injury PMH - Psych Hx Psychiatric Problems Yes Hx Anxiety Yes Hx Depression Yes PMH - Hematology/Oncology Hx Hematology/Oncology No Disorders Laboratory Results WBC 6.3 K/uL (4.2-12.2) 08/22/19 08:40 RBC 4.70 M/uL (3.80-5.40) 08/22/19 08:40 Hgb 14.2 gm/dl (11.6-16.0) 08/22/19 08:40 Hct 44.0 % (35.0-47.0) 08/22/19 08:40 MCV 93.6 fl (81-97) 08/22/19 08:40 MCH 30.2 pg (27-33) 08/22/19 08:40 MCHC 32.3 g/dl (32-36) 08/22/19 08:40 RDW 13.1 % (11.5-14.5) 08/22/19 08:40 Plt Count 359 K/uL (130-400) 08/22/19 08:40 MPV 8.7 fl (7.4-10.4) 08/22/19 08:40 Gran % 52.9 % (47-80) 08/22/19 08:40 Lymphocytes % 30.8 % (16-45) 08/22/19 08:40 Monocytes % 13.0 % (0-9) H 08/22/19 08:40 Eosinophils % 2.7 % (0-6) 08/22/19 08:40 Basophils % 0.6 % (0-6) 08/22/19 08:40 Absolute Neutrophils 3.32 08/22/19 08:40 D-Dimer 0.39 mg/L FEU (0-0.59) 08/22/19 08:40 Sodium 139 mmol/L (136-145) 08/22/19 08:40 Potassium 3.6 mmol/L (3.4-4.5) 08/22/19 08:40 Chloride 100 mmol/L (98-107) 08/22/19 08:40 Carbon Dioxide 25.0 mmol/L (22-29) 08/22/19 08:40 Anion Gap 14.0 (7-16) 08/22/19 08:40 BUN 25 mg/dL (6-20) H 08/22/19 08:40 Creatinine 1.1 mg/dL (0.5-0.9) H 08/22/19 08:40 Estimated GFR 54 mL/min 08/22/19 08:40 Random Glucose 97 mg/dL (74-109) 08/22/19 08:40 Calcium 9.4 mg/dL (8.6-10.0) 08/22/19 08:40 Total Bilirubin 0.50 mg/dL (0.2-1.0) 08/22/19 08:40 AST 20 U/L (10.0-35.0) 08/22/19 08:40 ALT 24 U/L (<33) 08/22/19 08:40 Alkaline Phosphatase 104 U/L (35-104) 08/22/19 08:40 Creatine Kinase 192 U/L (26-192) 08/22/19 08:40 CK-MB (CK-2) Cancelled 08/23/19 14:30 Troponin T Cancelled 08/23/19 14:30 NT-Pro-B Natriuret Pep 26.01 pg/mL (<125) 08/22/19 08:40 Total Protein 7.5 g/dL (6.6-8.7) 08/22/19 08:40 Albumin 4.6 g/dL (4.0-5.0) 08/22/19 08:40 Globulin 2.9 gm/dL (1.4-4.8) 08/22/19 08:40 Albumin/Globulin Ratio 1.6 (1.1-1.8) 08/22/19 08:40 Triglycerides 236 mg/dL (<150) H 08/22/19 08:40 Cholesterol 159 mg/dL (<200) 08/22/19 08:40 LDL Cholesterol Measurd 101.0 mg/dL (0-100) H 08/22/19 08:40 VLDL Cholesterol 47 mg/dL (10.00-40.00) 08/22/19 08:40 HDL Cholesterol 39 mg/dL (40-60) L 08/22/19 08:40 Vital Signs - Last 24 Hrs Temp Pulse Pulse Pulse Resp BP BP 08/22/19 12:26 66 18 103/67 08/22/19 12:23 97.8 F 71 16 106/70 08/22/19 10:47 97.8 F 72 14 107/77 08/22/19 09:31 68 100/64 08/22/19 09:09 76 18 98/70 08/22/19 09:04 71 18 125/86 08/22/19 08:30 97.4 F L 82 20 133/90 Pulse Ox 08/22/19 12:26 99 08/22/19 12:23 92 L 08/22/19 10:47 98 08/22/19 09:31 95 08/22/19 09:09 96 08/22/19 09:04 98 08/22/19 08:30 98 08/23/19- Patient is currently asymptomatic and denies any chest pain, fluttering, tachycardia, chest pressure. She did have an episode of chest pain last night, twice, about 1800. She was given nitro x 1 with resolution of pain. Telemetry at that time does show an episode of PVC/PAC. Otherwise hospital course has been unremarkable. She does note in 2010 she was involved in an argument with a close friend's grandsons that caused her acute onset of chest pain and NSTEMI. She also states previous 17 year marriage in which she cared for her chronically ill which required peritoneal dialysis, had amputations and other chronic health issues due to this diabetes that has caused her chronic insomnia and poor sleep patterns. She reports she does not feel she is in a healthy sleep pattern and wakes up at 3am every day . She is also concerned about not having Xanax at home anymore as was taken off by PCP due to concurrent use with Restoril. She admits to a high stress level day-to-day and is a "worry wart". Her level of anxiety may be adding to her symptoms. Cardiology consult with completed, echocardiogram complete showing preserved EF, no WMA, and a small pericardial effusion without hemodynamic compromise. She does admit to having flu-like symptoms about 2-3 weeks ago and could be causing viral related pericarditis. CT chest completed which did not confirm bilateral pneumonia and was otherwise negative for acute interthoracic process. Antibiotics subsequently discontinued, will be discharged with 48-hour Holter monitor that will be placed at time of discharge and will need to follow up with PCP in 1 week regarding her anxiety and sleep patterns and cardiology for outpatient stress test and Holter monitor review. 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 .Continuous EKG QDX2@0600 Echo W/CF & Cardiac Doppler NOW 08/23/19 09:09 Holter Monitor NOW Abnormal Labs: Abnormal Lab Results 08/22/19 08/22/19 08/22/19 Range/Units 08:40 08:40 08:40 MCHC (32-36) g/dl Monocytes % 13.0 H (0-9) % Carbon Dioxide (22-29) mmol/L BUN 25 H (6-20) mg/dL Creatinine 1.1 H (0.5-0.9) mg/dL Random Glucose (74-109) mg/dL CK-MB (CK-2) 4.7 H (<3.77) ng/mL Total Protein (6.6-8.7) g/dL Triglycerides 236 H (<150) mg/dL LDL Cholesterol Measurd 101.0 H (0-100) mg/dL HDL Cholesterol 39 L (40-60) mg/dL 08/22/19 08/23/19 08/23/19 Range/Units 16:38 00:45 06:20 MCHC 31.1 L (32-36) g/dl Monocytes % 12.6 H (0-9) % Carbon Dioxide (22-29) mmol/L BUN (6-20) mg/dL Creatinine (0.5-0.9) mg/dL Random Glucose (74-109) mg/dL CK-MB (CK-2) 4.3 H 3.9 H (<3.77) ng/mL Total Protein (6.6-8.7) g/dL Triglycerides (<150) mg/dL LDL Cholesterol Measurd (0-100) mg/dL HDL Cholesterol (40-60) mg/dL 08/23/19 Range/Units 06:20 MCHC (32-36) g/dl Monocytes % (0-9) % Carbon Dioxide 20.0 L (22-29) mmol/L BUN 23 H (6-20) mg/dL Creatinine (0.5-0.9) mg/dL Random Glucose 113 H (74-109) mg/dL CK-MB (CK-2) (<3.77) ng/mL Total Protein 6.4 L (6.6-8.7) g/dL Triglycerides (<150) mg/dL LDL Cholesterol Measurd (0-100) mg/dL HDL Cholesterol (40-60) mg/dL Discharge Medications - Discharge Medications Prescriptions: Nitroglycerin 0.4MG [Nitrostat 0.4MG] 0.4 mg SL Q5MIN PRN #1 bottle PRN Reason: Chest Pain Aspirin Enteric-Coated [Ecotrin (EC)] 325 mg PO DAILY 30 Days #30 tabec Home Medications: Ambulatory Orders Hydrochlorothiazide [Hctz] 25 mg PO DAILY 01/12/16 [Last Taken 01/12/16] Metoprolol Tartrate [Lopressor] 50 mg PO DAILY 01/12/16 [Last Taken 01/12/16] Pramipexole Di-HCl [Mirapex] 0.5 mg PO QHS 01/12/16 [Last Taken 01/11/16] Sumatriptan Succinate [Imitrex] 50 mg PO ASDIR 01/12/16 [Last Taken Unknown] Cetirizine HCl 10 mg PO DAILY tab.chew 12/27/18 [Last Taken Unknown] Multivitamin [Multivitamins] 1 each PO DAILY tab 12/27/18 [Last Taken Unknown] Lisinopril 30 mg PO QD tab 05/01/19 [Last Taken Unknown] Aspirin Enteric-Coated [Ecotrin (EC)] 325 mg PO DAILY 30 Days #30 tabec 08/23/19 [Last Taken Unknown] Loratadine [Claritin] 10 mg PO DAILY tablet 08/23/19 [Last Taken Unknown] Nitroglycerin 0.4MG [Nitrostat 0.4MG] 0.4 mg SL Q5MIN PRN #1 bottle 08/23/19 [Last Taken Unknown] Pramipexole Di-HCl [Pramipexole Dihydrochloride] 0.5 mg PO QHS tablet 08/23/19 [Last Taken Unknown] Temazepam [Restoril] 15 mg PO QHS PRN cap 08/23/19 [Last Taken Unknown] Discharge Plan - Discharge Instructions Activity at Discharge: Increase Activity as Tolerated Diet at Discharge: Advance to Usual Diet Quality Measures - Quality Measures Quality Measures: Documentation of Current Medications in Medical Record, Screening for High Blood Pressure and F/U Documented - Current Medications Quality Measure: Measure #130: Documentation of Current Medications Documentation of Current Medications: <Current Medications Documented/Reviewed> [G8427] - Blood Pressure Screening Quality Measure: Screening for High Blood Pressure and Follow-Up Documented Does Patient Have Any of the Following: Active Dx of HTN Blood Pressure Classification: Normal BP Reading Systolic Measurement: 103 Diastolic Measurement: 67 Screening for High Blood Pressure: Patient Exclusion, Hx of HTN [G9744] - Elder Abuse Suspicion Index EASI Reference Information: Phil LAMAS, Emily C, Brii D, Vy Marie.Development and validation of a tool to assist physicians identification of elder abuse: The Elder Abuse Suspicion Index (EASI ). Journal of Elder Abuse and Neglect, 2008; 20 (3): 276-300.
[2019-08-23] MEDS ORDERED: LORATADINE 10 MG TABLET PO SCH (10:00)
[2019-08-23] MEDS ORDERED: CETIRIZINE HCL 10 MG PO SCH (10:00)
[2019-08-23] MEDS ORDERED: METOPROLOL TART 50 MG TABLET PO SCH (10:00)
[2019-08-23] MEDS ORDERED: ENOXAPARIN 40 MG/0.4 ML SYR SQ SCH (10:00)
[2019-08-23] MEDS ORDERED: HYDROCHLOROTHIAZIDE 25 MG TABLET PO SCH (10:00)
[2019-08-23] MEDS ORDERED: ASPIRIN 325 MG TAB ENTERIC-COATED PO SCH (10:00)
[2019-08-23] MEDS ORDERED: CITALOPRAM 20 MG TABLET PO SCH (10:00)
--- NOTE | 2019-09-02 07:59 | Holter Monitor Report ---
DATE OF TEST: 08/23/2019 INDICATION: Palpitations. Ms. Ball underwent 48-Hour Holter monitoring starting at 9:27 a.m. on 08/23/2019. The patient remained in sinus rhythm with an average heart rate of 80 b.p.m. The minimum heart rate was 53 b.p.m. occurring at 2:45 a.m. on day 2. The maximum heart rate was 115 b.p.m. occurring at 6:09 p.m. on day 1. Ventricular ectopic activity consisted of 812 beats, of which, 2 were in couplets, 436 were in single PVC's, 2 were in interpolated PVC's, 369 were single ventricular ectopics, 3 were in trigeminy. The patient's rhythm included 4 minutes 17 seconds of bradycardia. The slowest single episode of bradycardia occurred at 2:45 a.m. on day 2, lasting 36 seconds, with minimum heart rate of 53 b.p.m. The patient's rhythm included 1 hour 12 minutes 22 seconds of tachycardia. The fastest single episode of tachycardia occurred at 6:08 p.m. on day 1, lasting 5 minutes 50 seconds, with maximum heart rate of 115 b.p.m. Supraventricular ectopic activity consisted of 29 beats of which, 7 were in one run, 1 was late beat, 21 were single PAC's. The longest R-interval was 1.4 seconds occurring at 1:27 a.m. on day 2. The longest supraventricular run occurred at 8:16 a.m. on day 1 consisting of 7 beats, with a maximum heart rate of 138 b.p.m. The fastest supraventricular run occurred at 8:16 a.m. on day 1, consisting of 7 beats, with maximum heart rate of 138 b.p.m. The patient did not report any abnormal symptoms during monitoring. IMPRESSION: THIS 48-HOUR HOLTER MONITORING REVEALS THE PATIENT TO BE IN SINUS RHYTHM WITH AN AVERAGE HEART RATE OF 80 B.P.M. THE PATIENT HAD OCCASIONAL VENTRICULAR AND SUPRAVENTRICULAR ECTOPY WITH A TOTAL VENTRICULAR ECTOPIC BURDEN OF 0.4%. THE PATIENT ALSO HAD 1 SHORT RUN OF ATRIAL TACHYCARDIA CONSISTING OF 7 BEATS AT 138 B.P.M. THE PATIENT DID NOT REPORT ANY SYMPTOMS AT THIS TIME. JOB NUMBER: [id number] [facility]
== END 2019-08-23 10:56 | disposition home or self-care (01) | DRG 313 ==
LOC: ER 08:27 → MEDSURG 12:25 → OBSVTOIN 15:36
PROVIDERS: ADMIT Internal Medicine; ATTEND Internal Medicine
DX: R07.9 Chest pain, unspecified (principal); J18.9 Pneumonia, unspecified organism; I51.81 Takotsubo syndrome; E03.9 Hypothyroidism, unspecified; I25.2 Old myocardial infarction; F17.210 Nicotine dependence, cigarettes, uncomplicated; Z98.61 Coronary angioplasty status
CPT/HCPCS: 82550; 85025; 82553; 80053; 80061; 84145; 84484; 85379; 83880; 71046; 93005; 93306; J0696; 71260; 84443; 85651; 86140; 93010; 93225; 93226; 99223; 99239; 99285